=== PATIENT | female | born 1960 | race Caucasian/White ===

== ENCOUNTER 2019-11-25 07:38 | Outpatient (CLI) | payer MEDICARE ==
[2019-11-25] MEDS ORDERED: OMNIPAQUE 350 MG/ML ONE (09:00)
== END 2019-11-25 23:59 | disposition home or self-care (01) ==
LOC: RAD 07:38
PROVIDERS: ATTEND Specialist
DX: N21.0 Calculus in bladder (principal); N20.0 Calculus of kidney; G89.18 Other acute postprocedural pain; Z79.01 Long term (current) use of anticoagulants
CPT/HCPCS: 51600; 74425; 74430; Q9958; Q9967

== ENCOUNTER 2020-04-05 12:10 | Outpatient (CLI) | payer MEDICARE ==
[2020-04-05] MEDS ORDERED: OMNIPAQUE 350 MG/ML, 100ML BOTTLE ONE (14:54)
== END 2020-04-05 23:59 | disposition home or self-care (01) ==
LOC: RAD 12:10
PROVIDERS: ATTEND Specialist
DX: C53.9 Malignant neoplasm of cervix uteri, unspecified (principal); N21.0 Calculus in bladder; N21.8 Other lower urinary tract calculus; G89.18 Other acute postprocedural pain; M43.8X9 Other specified deforming dorsopathies, site unspecified
CPT/HCPCS: 74177; Q9967

== ENCOUNTER 2020-04-29 12:17 | Outpatient (CLI) | payer MEDICARE | END 2020-04-29 23:59 | disposition home or self-care (01) | LOC: RAD 12:17 | PROVIDERS: ATTEND Specialist | DX: R33.8 Other retention of urine (principal); N21.8 Other lower urinary tract calculus; M89.8X8 Other specified disorders of bone, other site; Z85.41 Personal history of malignant neoplasm of cervix uteri; Z79.01 Long term (current) use of anticoagulants | CPT/HCPCS: 51600; 74430; Q9958 ==